=== PATIENT | female | born 1940 | race Caucasian/White ===

== ENCOUNTER 2019-07-04 06:59 | Inpatient (IN) | payer MEDICARE, MEDICAID ==
[~2019-07-04] VITALS: Ht 172.7 cm; Wt 104.5 kg
[~2019-07-04 06:59] MED LIST: ARIP15TA3 PO; BENZ2TAB7 PO; CLON-527 PO; FURO-150 PO; LEVO25TA2 PO; MULT1TAB74 PO; SPIR50TA5 PO; ZIPR20CA2 PO; ZOLP5TAB2 PO
[2019-07-04 07:50] LABS: BASOPHILS % (AUTO) 0.6 % (0-1); EOSINOPHILS # (AUTO) 0.1 X10'3 (0-0.9); EOSINOPHILS % (AUTO) 2.1 % (0-6); HEMATOCRIT 41.4 % (35.0-45.0); HEMOGLOBIN 13.8 g/dl (12.0-16.0); LYMPHOCYTES # (AUTO) 1.1 X10'3 (1.1-4.8); LYMPHOCYTES % (AUTO) 24.1 % (21-51); MEAN CORPUSCULAR HEMOGLOBIN 29.5 PG (27.0-31.0); MEAN CORPUSCULAR HGB CONC 33.3 g/dL (33.0-36.5); MEAN CORPUSCULAR VOLUME 88.5 FL (78-98); MEAN PLATELET VOLUME 9.8 FL (7.4-10.4); MONOCYTES # (AUTO) 0.3 X10'3 (0-0.9); MONOCYTES % (AUTO) 5.9 % (2-12); NEUTROPHILS # (AUTO) 3.2 X10'3 (1.8-7.7); NEUTROPHILS % (AUTO) 67.3 % (42-75); PLATELET COUNT 136 X10'3 (140-440); RED BLOOD COUNT 4.68 X10'6 (4.20-5.60); WHITE BLOOD COUNT 4.7 X10'3 (4.5-11.0)
[2019-07-04 08:06] LABS: ALANINE AMINOTRANSFERASE 154 U/L (12-78); ALBUMIN 2.6 G/DL (3.4-5.0); ALBUMIN/GLOBULIN RATIO 0.7 (1.1-1.5); ALKALINE PHOSPHATASE 184 IU/L (46-116); ANION GAP 5 (8-16); ASPARTATE AMINO TRANSFERASE 92 U/L (10-37); BILIRUBIN,TOTAL 0.1 MG/DL (0.1-1.0); BLOOD UREA NITROGEN 50 MG/DL (7-18); BUN/CREATININE RATIO 23.8 (6.6-38.0); CALCIUM 9.4 MG/DL (8.5-10.1); CHLORIDE 112 MMOL/L (99-107); GLUCOSE 75 MG/DL (70-104); POTASSIUM 3.8 MMOL/L (3.5-5.1); SODIUM 146 MMOL/L (135-145); TOTAL CARBON DIOXIDE 29.4 MMOL/L (24-32); TOTAL PROTEIN 6.2 G/DL (6.4-8.2); eGFR 23 ML/MIN
[2019-07-04 08:13] LABS: MAGNESIUM 2.2 MG/DL (1.5-2.4)
[2019-07-04 08:25] LABS: CLARITY,URINE SLIGHTLY CLOUDY (Clear); COLOR,URINE YELLOW (Yellow); GLUCOSE, URINE NEGATIVE (Neg); KETONES,URINE NEGATIVE (Neg); LEUKOCYTE ESTERASE ,URINE MODERATE (Neg); NITRITES, URINE NEGATIVE (Neg); OCCULT BLOOD,URINE SMALL (Neg); PROTEIN,URINE NEGATIVE (Neg); UROBILINOGEN,URINE 0.2 E.U/dL (0.2-1.0)
[2019-07-04 08:30] LABS: UA COLLECTION TYPE FOLEY CATH
[2019-07-04 08:32] LABS: SQUAMOUS EPITHELIAL CELL,UR FEW /LPF (FEW); WBC,URINE 50-100 /HPF (0-4)
[2019-07-04 08:33] LABS: WBC CLUMPS,URINE FEW /HPF (NEGATIVE)
[2019-07-04 08:34] LABS: BACTERIA,URINE FEW /HPF (Neg); RBC,URINE 0-2 /HPF (0-2)
[2019-07-04] MEDS ORDERED: CefTRIAXone 2gm/D5W 50ml 50 ML IV ONE (09:20)
[2019-07-04] MEDS ORDERED: magnesium hydroxide 30ml (MOM) UD suspension PO PRN (09:35)
[2019-07-04] MEDS ORDERED: morphine 2 MG/ML inj. syringe IV PRN ×2 (09:35)
[2019-07-04] MEDS ORDERED: mag hydrox/Alum hydrox/simeth 30ml oral suspension PO PRN (09:35)
[2019-07-04] MEDS ORDERED: HYDROcodone/acetaminophen 5mg/325mg tablet PO PRN (09:35)
[2019-07-04] MEDS ORDERED: ondansetron/PF 4mg/2ml inj IV PRN (09:35)
[2019-07-04] MEDS ORDERED: acetaminophen 325mg tablet PO PRN ×2 (09:35)
--- NOTE | 2019-07-04 09:41 | NUR ---
MARIE PALAFOX (PT CONSERVATOR) PHONE NUMBER [phone]
[2019-07-04] MEDS: dextrose 5%-1/2 normal saline 1,000 ML IV SCH ×2 (10:14→20:48)
[2019-07-04] MEDS ORDERED: FLUV25TA3 PO (10:28)
[2019-07-04] MEDS ORDERED: OMEP40CA13 PO (10:28)
[2019-07-04] MEDS ORDERED: LORA-269 PO (10:28)
[2019-07-04] MEDS ORDERED: CELE-193 PO (10:28)
[2019-07-04] MEDS ORDERED: BENZ1TAB7 PO (10:28)
[2019-07-04] MEDS ORDERED: RISP2TAB3 PO (10:28)
[2019-07-04] MEDS ORDERED: FURO-150 PO (10:28)
[2019-07-04] MEDS ORDERED: POTA10TA10 PO (10:28)
[2019-07-04] MEDS ORDERED: RISP1TAB3 PO (10:28)
--- NOTE | 2019-07-04 11:25 | NUR ---
received report from ER
[2019-07-04 12:08] VITALS: BP 105/47
[2019-07-04] MEDS ORDERED: zolpidem 5mg tablet PO PRN (13:55)
[2019-07-04 18:00] VITALS: BP 121/48
--- NOTE | 2019-07-04 18:15 | NUR ---
Patient in room [facility] 4009. I have received report from NICO Brothers and had the opportunity to ask questions and assume patient care.
--- NOTE | 2019-07-04 18:47 | NUR ---
Problems reprioritized. Patient report given, questions answered & plan of care reviewed with Esperanza WALSH.
[2019-07-04 20:00] VITALS: BP 126/59
[2019-07-04] MEDS ORDERED: ARIPIPRAZOLE 15 MG TABLET PO SCH (20:00)
[2019-07-04] MEDS: fluvoxamine 25 MG tablet PO SCH (20:53)
[2019-07-04] MEDS: risperiDONE 2mg tablet PO SCH (20:54)
[2019-07-04] MEDS: benztropine 1mg tablet PO SCH (20:55)
[2019-07-04] MEDS: LORazepam 0.5 MG tablet PO SCH (20:56)
[2019-07-04] MEDS: furosemide 20MG tablet PO SCH (20:57)
[2019-07-04] MEDS: potassium chloride 10mEq ER tablet PO SCH (20:57)
[2019-07-04 22:00] VITALS: BP 126/59
[2019-07-04] MEDS: ziprasidone 20mg capsule PO SCH (23:22)
[2019-07-05 06:00] VITALS: BP 122/62
--- NOTE | 2019-07-05 06:20 | NUR ---
Problems reprioritized. Patient report given, questions answered & plan of care reviewed with NICO Stovall.
[2019-07-05 06:44] LABS: BASOPHILS % (AUTO) 0.6 % (0-1); EOSINOPHILS # (AUTO) 0.1 X10'3 (0-0.9); EOSINOPHILS % (AUTO) 3.3 % (0-6); HEMATOCRIT 36.6 % (35.0-45.0); HEMOGLOBIN 12.6 g/dl (12.0-16.0); LYMPHOCYTES # (AUTO) 1.3 X10'3 (1.1-4.8); MEAN CORPUSCULAR HEMOGLOBIN 30.2 PG (27.0-31.0); MEAN CORPUSCULAR HGB CONC 34.3 g/dL (33.0-36.5); MEAN CORPUSCULAR VOLUME 87.8 FL (78-98); MEAN PLATELET VOLUME 9.8 FL (7.4-10.4); MONOCYTES # (AUTO) 0.3 X10'3 (0-0.9); MONOCYTES % (AUTO) 6.3 % (2-12); NEUTROPHILS # (AUTO) 2.6 X10'3 (1.8-7.7); NEUTROPHILS % (AUTO) 59.8 % (42-75); PLATELET COUNT 129 X10'3 (140-440); RED BLOOD COUNT 4.17 X10'6 (4.20-5.60); RED CELL DISTRIBUTION WIDTH 15.4 % (11.5-14.5); WHITE BLOOD COUNT 4.3 X10'3 (4.5-11.0)
[2019-07-05 07:01] LABS: ALBUMIN 2.3 G/DL (3.4-5.0); ANION GAP 6 (8-16); BLOOD UREA NITROGEN 36 MG/DL (7-18); BUN/CREATININE RATIO 19.6 (6.6-38.0); CALCIUM 8.4 MG/DL (8.5-10.1); CHLORIDE 112 MMOL/L (99-107); CREATININE 1.84 MG/DL (0.40-0.90); GLUCOSE 104 MG/DL (70-104); POTASSIUM 3.3 MMOL/L (3.5-5.1); SODIUM 146 MMOL/L (135-145); TOTAL CARBON DIOXIDE 28.2 MMOL/L (24-32); eGFR 26 ML/MIN
[2019-07-05] MEDS ORDERED: enoxaparin 40mg/0.4ml syringe SUBCUT SCH (08:00)
--- NOTE | 2019-07-05 08:05 | NUR ---
CLEANED AND DRESSED PT BILATERAL LOWER EXTREMITY WOUNDS PER WOC ORDERS, AND CLEANED PT RIGHT UPPER LEG/BUTTOCK WOUND AND PLACED FOAM OVER, PHOTOS IN CHART
[2019-07-05] MEDS: pantoprazole 40mg Tablet.DR PO SCH (08:07)
[2019-07-05] MEDS: dextrose 5%-1/2 normal saline 1,000 ML IV SCH ×2 (08:07→17:40)
[2019-07-05] MEDS: CefTRIAXone/D5W-Rocephin 1gm 50 ML IV SCH (08:08)
[2019-07-05] MEDS: ARIPIPRAZOLE 15 MG TABLET PO SCH (08:08)
[2019-07-05] MEDS: celeCOXIB 100mg capsule PO SCH (08:09)
[2019-07-05] MEDS: LORazepam 0.5 MG tablet PO SCH ×2 (08:09→20:13)
[2019-07-05] MEDS: benztropine 1mg tablet PO SCH ×2 (08:10→20:13)
[2019-07-05] MEDS: furosemide 20MG tablet PO SCH ×2 (08:11→20:13)
[2019-07-05] MEDS: potassium chloride 10mEq ER tablet PO SCH ×3 (08:11→21:24)
[2019-07-05] MEDS: multivitamins, therapeutics tablet PO SCH (08:12)
[2019-07-05] MEDS: levoTHYROXINE 25mcg tablet PO SCH (08:12)
[2019-07-05 10:00] VITALS: BP 109/49
--- NOTE | 2019-07-05 12:57 | NUR ---
Tele called to report HR of 40, patient sleeping soundly, awoken easily-HR currently at 45-46
[2019-07-05] MEDS: risperiDONE 0.5mg tablet PO SCH (13:13)
[2019-07-05] MEDS: ziprasidone 20mg capsule PO SCH ×2 (13:14→23:00)
--- NOTE | 2019-07-05 14:09 | NUR ---
Ferdinand consult: Pt admit w/ hypothermia not taking thyroid meds at care facility and concerns for possible sepsis secondary to UTI per MD note. Current sepsis score 0 per EMR. Pt AOx1. Ferdinand 12 w/ BLE open wounds and R posterior thigh PU present per WOC note. Pt current not appropriate for high protein ed w/ ALOC. Is receiving MVI for healing needs. PO 75-100% first regular meal last night. Chava shakes BIDLD added to meals given pt wound healing needs and current wt; MD notified. Pt receiving electrolyte replacement as needed. LBM 07/03. Will continue to monitor for additional protein needs this admit. Rec: 1. continue regular diet 2. Chava shakes BIDLD for wound healing 3. MVI for wound healing 4. routine bowel care 5. wt per rx Addendum: 07/05/19 at [address] Amended: Links added.
[2019-07-05] MEDS ORDERED: enoxaparin 30mg/0.3ml syringe SUBCUT SCH (14:18)
--- NOTE | 2019-07-05 15:04 | NUR ---
PAGER ID: [phone] MESSAGE: [id number] hr drops into 40's. Can I extend tele order beyond 24 hr? Sia [phone]
[2019-07-05 18:00] VITALS: BP 141/65
[2019-07-05] MEDS: JUVEN Shake w/Arg/Glut/Ca2+Bmb (Juven 19.3gm) pkt 240ml PO SCH (18:00)
--- NOTE | 2019-07-05 18:25 | NUR ---
Report to July RN
[2019-07-05] MEDS: fluvoxamine 25 MG tablet PO SCH (20:13)
[2019-07-05] MEDS: risperiDONE 2mg tablet PO SCH (21:24)
[2019-07-05 22:00] VITALS: BP 121/50
[2019-07-06] MEDS: dextrose 5%-1/2 normal saline 1,000 ML IV SCH ×2 (04:06→11:34)
[2019-07-06 06:00] VITALS: BP 141/105
[2019-07-06 07:11] LABS: ALBUMIN 2.2 G/DL (3.4-5.0); ANION GAP 5 (8-16); BLOOD UREA NITROGEN 28 MG/DL (7-18); BUN/CREATININE RATIO 18.1 (6.6-38.0); CALCIUM 8.3 MG/DL (8.5-10.1); CHLORIDE 112 MMOL/L (99-107); CREATININE 1.55 MG/DL (0.40-0.90); GLUCOSE 91 MG/DL (70-104); POTASSIUM 3.7 MMOL/L (3.5-5.1); SODIUM 144 MMOL/L (135-145); TOTAL CARBON DIOXIDE 26.7 MMOL/L (24-32); eGFR 32 ML/MIN
[2019-07-06 08:40] LABS: BASOPHILS % (AUTO) 0.5 % (0-1); EOSINOPHILS # (AUTO) 0.1 X10'3 (0-0.9); EOSINOPHILS % (AUTO) 3.4 % (0-6); HEMATOCRIT 39.1 % (35.0-45.0); HEMOGLOBIN 13.2 g/dl (12.0-16.0); LYMPHOCYTES # (AUTO) 1.3 X10'3 (1.1-4.8); LYMPHOCYTES % (AUTO) 30.2 % (21-51); MEAN CORPUSCULAR HEMOGLOBIN 30.1 PG (27.0-31.0); MEAN CORPUSCULAR HGB CONC 33.8 g/dL (33.0-36.5); MEAN CORPUSCULAR VOLUME 89.1 FL (78-98); MEAN PLATELET VOLUME 9.5 FL (7.4-10.4); MONOCYTES # (AUTO) 0.3 X10'3 (0-0.9); MONOCYTES % (AUTO) 7.1 % (2-12); NEUTROPHILS # (AUTO) 2.5 X10'3 (1.8-7.7); NEUTROPHILS % (AUTO) 58.8 % (42-75); PLATELET COUNT 117 X10'3 (140-440); RED BLOOD COUNT 4.39 X10'6 (4.20-5.60); RED CELL DISTRIBUTION WIDTH 16.2 % (11.5-14.5); WHITE BLOOD COUNT 4.3 X10'3 (4.5-11.0)
[2019-07-06] MEDS: potassium chloride 10mEq ER tablet PO SCH ×2 (09:11→12:56)
[2019-07-06] MEDS: CefTRIAXone/D5W-Rocephin 1gm 50 ML IV SCH (09:12)
[2019-07-06] MEDS: celeCOXIB 100mg capsule PO SCH (09:14)
[2019-07-06] MEDS: ARIPIPRAZOLE 15 MG TABLET PO SCH (09:15)
[2019-07-06] MEDS: benztropine 1mg tablet PO SCH (09:15)
[2019-07-06] MEDS: ziprasidone 20mg capsule PO SCH (09:15)
[2019-07-06] MEDS: furosemide 20MG tablet PO SCH (09:16)
[2019-07-06] MEDS: LORazepam 0.5 MG tablet PO SCH (09:16)
[2019-07-06] MEDS: levoTHYROXINE 25mcg tablet PO SCH (09:16)
[2019-07-06] MEDS: multivitamins, therapeutics tablet PO SCH (09:16)
[2019-07-06] MEDS: pantoprazole 40mg Tablet.DR PO SCH (09:17)
[2019-07-06] MEDS: risperiDONE 0.5mg tablet PO SCH (09:30)
[2019-07-06 10:00] VITALS: BP 151/78
[2019-07-06] MEDS ORDERED: SULF1TAB49 PO (11:48)
--- NOTE | 2019-07-06 12:13 | NUR ---
Pictures taken yesterday, no changes. Addendum: 07/06/19 at 1213 by Crystal Pierson RN Amended: Links added.
[2019-07-06] MEDS: JUVEN Shake w/Arg/Glut/Ca2+Bmb (Juven 19.3gm) pkt 240ml PO SCH (12:30)
--- NOTE | 2019-07-06 13:00 | NUR ---
Student documentation: [id number] I have reviewed and agree with all interventions, assessments performed and documented by SANTI BENOIT.
--- NOTE | 2019-07-06 13:54 | NUR ---
Pictures taken 07/05/19 Addendum: 07/06/19 at 1354 by Crystal Pierson RN Amended: Links added.
--- NOTE | 2019-07-06 15:50 | NUR ---
Student Medication Administration:[id number] For this medication-pass time frame, all medication were reviewed, dispensed, administered and documented per hospital policy by SANTI BENOIT.
== END 2019-07-06 14:00 | DRG 871 ==
LOC: ER 07:00 → ED HOLD 09:34 → UNDOADMIN 10:13 → EDBEDREQ 10:48 → ORTHO 4S 11:47 → ED HOLD 11:47
PROVIDERS: ADMIT Internal Medicine; ATTEND Internal Medicine
DX: A41.9 Sepsis, unspecified organism (principal); E43 Unspecified severe protein-calorie malnutrition; N39.0 Urinary tract infection, site not specified; N17.9 Acute kidney failure, unspecified; F20.9 Schizophrenia, unspecified; T68.XXXA Hypothermia, initial encounter; E03.9 Hypothyroidism, unspecified; F03.90 Unspecified dementia, unspecified severity, without behavioral disturbance, psychotic disturbance, mood disturbance, and anxiety; N18.3 Chronic kidney disease, stage 3 (moderate); Z66 Do not resuscitate; X58.XXXA Exposure to other specified factors, initial encounter; Z79.899 Other long term (current) drug therapy; Z86.73 Personal history of transient ischemic attack (TIA), and cerebral infarction without residual deficits; Y93.89 Activity, other specified; Y92.89 Other specified places as the place of occurrence of the external cause; Y99.8 Other external cause status; Z68.35 Body mass index [BMI] 35.0-35.9, adult
CPT/HCPCS: 36415; 71045; 80048; 80053; 81001; 83605; 83735; 84145; 84439; 84443; 85025; 87040; 87081; 87088; 93005; 96365; 99285; G0378; J0696; J1650